=== PATIENT | male | born 1950 | race Caucasian/White ===

== ENCOUNTER 2024-10-08 00:15 | Inpatient (IN) | payer MEDICARE ==
[~2024-10-08] VITALS: Ht 177.8 cm; Wt 79.0 kg
[2024-10-08 00:38] VITALS: BP 158/73
[2024-10-08] MEDS ORDERED: ASPIRIN CHEWABL81 MG PO (01:12)
[2024-10-08] MEDS ORDERED: LIPITOR40 MG PO (01:12)
[2024-10-08] MEDS ORDERED: LEVOTHYROXINE175 MCG PO (01:13)
[2024-10-08] MEDS ORDERED: NICODERM CQ1 EAC2 T (01:14)
[2024-10-08] MEDS ORDERED: Ziprasidone Mesylate 20 MG VIAL IM PRN (01:20)
[2024-10-08] MEDS ORDERED: LORazepam 1 MG TAB PO PRN (01:25)
[2024-10-08] MEDS ORDERED: Water, Sterile 10 ML VIAL IM PRN (01:25)
[2024-10-08] MEDS ORDERED: ACETAMINOPHEN 325 MG TAB PO PRN (01:25)
[2024-10-08] MEDS ORDERED: Magnesium Hydroxide 30 ML UDC PO PRN (01:25)
[2024-10-08] MEDS ORDERED: Menthol/Zinc Oxide 4 GM THIN T PRN (01:40)
[2024-10-08 02:34] LABS: BILIRUBIN Negative (Negative); BLOOD Negative (Negative); CLARITY Clear (Clear); COLOR Yellow (Yellow); GLUCOSE Negative (Negative); KETONE Negative (Negative); LEUKO ESTERASE Negative (Negative); NITRITE Negative (Negative); PH 6.5 (4.5-8.0); SPECIFIC GRAVITY 1.015 (1.001-1.030)
[2024-10-08 03:02] LABS: RBC 0-2 rbc/hpf (0-2)
[2024-10-08] MEDS ORDERED: Levothyroxine Sodium 175 MCG TAB PO SCH (06:00)
[2024-10-08 07:25] LABS: BASO # 0.1 10*3/uL (0.0-0.1); BASO % 0.6 % (0.0-1.0); EOS # 0.2 10*3/uL (0.0-0.4); EOS % 2.1 % (1.0-4.0); HEMATOCRIT 51.5 % (42.0-52.0); MEAN CELL VOLUME 91.8 fl (80.0-94.0); MEAN CORPUSCULAR HGB 30.3 pg (27.0-31.0); MEAN PLATELET VOLUME 9.9 fl (9.6-12.3); MONO # 0.7 10*3/uL (0.1-1.0); MONO % 7.7 % (3.0-9.0); NEUT # 5.8 10*3/uL (2.3-7.9); NEUT % 60.6 % (47.0-73.0); PLATELET COUNT AUTOMATED 221 10*3/uL (130-400); RED BLOOD COUNT 5.61 10*6/uL (4.50-5.90); RED CELL DISTRI WIDTH 13.7 % (0-14.5); WHITE BLOOD COUNT 9.6 10*3/uL (4.8-10.8)
[2024-10-08 08:03] LABS: VITAMIN D, 25-HYDROXY 36.1 ng/mL (30-100)
[2024-10-08 08:05] LABS: ALKALINE PHOSPHATASE 66 U/L (46-116); BUN 13 mg/dl (9-23); CHLORIDE 104 mmol/L (98-107); CHOLESTEROL 104 mg/dL (<200); LDL CHOLESTEROL 52 mg/dL (9-159); POTASSIUM 4.5 mmol/L (3.4-5.1); SGPT/ALT 9 U/L (5-49); TOTAL PROTEIN 6.3 gm/dL (6.0-8.0); TRIGLYCERIDES 76 mg/dl (<150)
[2024-10-08 08:40] VITALS: BP 168/80
[2024-10-08] MEDS ORDERED: CYANOCOBALAMIN 1,000 MCG/ML VIAL IM SCH (10:00)
[2024-10-08] MEDS ORDERED: ASPIRIN, CHEWABLE 81 MG TAB PO SCH (10:00)
[2024-10-08] MEDS ORDERED: ATORVASTATIN CALCIUM 40 MG TABLET PO SCH (10:00)
[2024-10-08] MEDS ORDERED: Nicotine 21 MG PATCH T SCH (10:00)
[2024-10-08] MEDS ORDERED: MUPIROCIN 15 GM TUBE T SCH (10:45)
[2024-10-08] MEDS ORDERED: hydrOXYzine hydrochloride 10 MG TAB PO SCH (13:00)
[2024-10-08 20:00] VITALS: BP 155/65
[2024-10-08] MEDS ORDERED: Doxycycline Hyclate 100 MG TAB PO SCH (21:00)
[2024-10-08] MEDS ORDERED: Mirtazapine 15 MG TAB PO SCH (21:00)
[2024-10-09 08:00] VITALS: BP 127/88
[2024-10-09] MEDS ORDERED: NICOTINE POLACRILEX 4 MG GUM PO PRN ×2 (10:20→13:10)
[2024-10-09 20:00] VITALS: BP 152/74
[2024-10-10 08:00] VITALS: BP 141/73
[2024-10-10 20:00] VITALS: BP 139/64
[2024-10-11 08:00] VITALS: BP 144/68
[2024-10-11] MEDS ORDERED: buPROPion SR 100 MG TAB PO SCH ×2 (11:12→16:00)
[2024-10-11] MEDS ORDERED: BUPROPION HYDR100 M3 PO (11:16)
[2024-10-11] MEDS ORDERED: B121000 MCG/1 IM (11:16)
[2024-10-11] MEDS ORDERED: MIRTAZAPINE15 M2 PO (11:16)
[2024-10-11] MEDS ORDERED: ATARAX,VISTARIL10 MG PO (11:16)
[2024-10-11 20:00] VITALS: BP 144/68
[2024-10-12 08:00] VITALS: BP 126/100
== END 2024-10-12 12:47 | disposition home or self-care (01) | DRG 881 ==
LOC: 4NE 00:15 → 3N 00:16
PROVIDERS: ADMIT Psychiatry & Neurology Psychiatry; ATTEND Psychiatry & Neurology Psychiatry
PROC: GZ51ZZZ Individual Psychotherapy, Behavioral (ICD-10-PCS; principal; 2024-10-08)
DX: F32.9 Major depressive disorder, single episode, unspecified (principal); J44.9 Chronic obstructive pulmonary disease, unspecified; E78.5 Hyperlipidemia, unspecified; E03.9 Hypothyroidism, unspecified; F17.210 Nicotine dependence, cigarettes, uncomplicated; F41.1 Generalized anxiety disorder; Z82.3 Family history of stroke; Z80.1 Family history of malignant neoplasm of trachea, bronchus and lung; Z79.82 Long term (current) use of aspirin; Z79.899 Other long term (current) drug therapy